=== PATIENT | female | born 1985 | race Caucasian/White ===

== ENCOUNTER 2019-06-05 12:16 | Emergency (ER) | payer MEDICAID, SELFPAY ==
[2019-06-05 12:26] VITALS: BP 126/91; PULSE 107; TEMP 36.7; O2SAT 100
--- NOTE | 2019-06-05 13:03 | ED.GENADUL_ITS ---
Discharge Plan Disposition Patient Disposition: HOME Condition: Improving Discharge Details Chief Complaint: PsychEval Clinical Impression: Anxiety Primary Care Provider: Unknown,Unknown ED Provider: Taurus Alonzo Home Meds and New Rx's Prescriptions: New prochlorperazine maleate [Compazine] 5 mg tablet 5 - 10 mg PO TID PRN (Reason: anxiety) Qty: 20 RF: 0 Continued hydroxyzine HCl 25 mg Tablet 25 mg PO PRN PRNRF: 0 buprenorphine-naloxone [Suboxone] 4-1 mg Film DAILY RF: 0 Discharge Instructions Instructions: Anxiety (ED) Additional Instructions: Upon discharge he should present to the General acute hospital for establishment of healthcare services and insurance coverage. They can also assist with any financial issues. Feel free to return to the emergency department for any new or significant worsening symptoms for anxiety and take your prescribed medications as needed for further episodes of anxiety. When you can establish a primary care provider please follow-up with them for further medication and treatment of your anxiety. Referrals: Primary Care Provider [Outside] - 5 days (For establishment of primary care and prescription medications) Medical Decision Making Patient presenting the emergency department for chief complaint of anxiety and insomnia. Patient states that she is recently out of rehab and has been staying at the [facility]. She reports going through alcohol and drug rehab for the past 28 days and has been at the [facility] situation for the past 2 days. Patient states episodes of mood swings, anxiety, and mild panic. She states that she has had these previously in the past and they are not new to her but given that she has been now sober for 1 month and now on Suboxone that she is doing better with her drug addiction but having difficulty coping with anxiety. Staff noted some irregular behavior today and brought her into the emergency department for evaluation. Patient denies any medical complaints at this time. Patient is not homicidal suicidal or having any hallucinations. Patient denies any relapse in drug abuse and states that she has been completely clean. Physical exam is unremarkable. Plan to check labs for any metabolic or organic source for her increased anxiety otherwise feel patient more likely dealing with underlying mental health issues secondary to drug rehab. At this time patient is only requesting Nicorette gum which I feel is reasonable. Review of labs shows nonspecific leukocytosis mildly low glucose at 56 so patient given orange juice. Urine and UDS along with other drug screen and alcohol is all negative. TSH is noted to be elevated but still pending free T4. I do feel patient is medically clear for psychiatric evaluation. After acute mental health project manager interior design came and assessed patient he agrees that this seems more anxiety related. Patient has no primary care provider and is new to the area so he provided her with some resources and our care management team is also contacted to help establish primary care. Patient's anxiety and given previous drug abuse including prescriptions I do feel safe attempting Compazine for patient's anxiety. Was able to speak with care management team and they informed me that given that patient is already been referred to [facility] for [facility] services they will also contact them to try to establish primary care provider as soon as possible as I do feel that patient should be evaluated for anti-anxiety or mood stabilization. Patient's free T4 was within normal range. Patient to follow-up with primary care provider preferably early next week either through [facility] or on-call PCP. Patient reassessed and does state that Compazine does seem to be slightly calming her with minimal side effects. Patient given prescription for this to continue use as needed. Return precautions discussed. After discussion of diagnosis and plan of care patient has no further needs, questions, or concerns and states clear understand ing to return to the emergency department for any worsening symptoms. HPI General Mode of arrival: ambulatory . Date/Time Provider Initiated Documentation: 06/05/19 12:22 . Limitations to Documentation: no limitations . Information obtained by: patient and RN notes reviewed . History of Present Illness 34 year old F presents to the emergency department with the chief complaint of Anxiety, insomnia, described as similar to prior episodes, Patient started experiencing this month(s) (1) and it has been intermittent. Patient notes no other symptoms.. Patient did receive the following treatments prior to arrival, none Related Data Home Medications Medication Instructions Recorded Confirmed buprenorphine-naloxone [Suboxone] film DAILY 06/05/19 hydroxyzine HCl 25 mg PO PRN PRN 06/05/19 06/05/19 prochlorperazine maleate 5 - 10 mg PO TID PRN #20 tab 06/05/19 [Compazine] Previous Rx's Medication Instructions Recorded prochlorperazine maleate 5 - 10 mg PO TID PRN #20 tab 06/05/19 [Compazine] Allergies Allergy/AdvReac Type Severity Reaction Status Date / Time No Known Allergies Allergy Unverified 06/05/19 12:33 General Stated Complaint: PsychEval DAX: 2 Review of Systems Constitutional Constitutional: Denies chills and Denies fever(s) ENT Ears, Nose, Mouth, and Throat: Reports sinus pressure (Chronic with occasional headaches) Cardiovascular Cardiovascular: Denies chest pain and Denies dyspnea Respiratory Respiratory: Denies dyspnea Gastrointestinal Gastrointestinal: Denies abdominal pain Genitourinary Genitourinary: Denies dysuria Neurologic Neurologic: Denies confusion and Reports paresthesias (Chronic ongoing from heroin use) Psychiatric Psychiatric: Reports as per HPI, Reports abnormal sleep pattern, Reports anxiety, Denies confusion, Denies auditory hallucinations, Reports mood swings, Denies visual hallucinations, Denies hallucinations, Denies tactile hallucinations, Denies homicidal ideation and Denies suicidal ideation [facility] Social History Alcohol Intake: former Details: has been sober for 1 month-was drinking 2 gallons vodka /day. was taking percocet, vicodin, adderal, vyvanse, ritalin. Exam Const General: cooperative Orientation: alert, awake and oriented x3 Limitations: mental status not altered HENIL Head: normal to inspection, normocephalic and atraumatic Ears: hearing grossly normal bilaterally Mouth: moist mucous membranes Eyes General: appearance normal, both eyes and all related structures Pupils: PERRL EOM: EOM intact bilaterally Neck Thyroid: thyroid normal Resp Effort & Inspection: normal respiratory effort, able to speak in complete sentences and no respiratory distress Auscultation: clear to auscultation bilaterally Cardio Rate: regular rate and not tachycardic Rhythm: regular rhythm Heart Sounds: S1 normal, S2 normal, no click, no gallops, no murmurs and no rubs Neuro General: alert, awake, oriented x3, gait normal, moves all extremities, no meningeal signs, no focal motor deficits, CN's II-XI intact bilaterally and not confused Cognition: normal cognition Speech: speech normal Psych Appearance: grossly normal Mental Status: mental status grossly normal Speech and Movement: speech and movement normal and speech clear Mood: anxious mood Affect: anxious affect Attitude: cooperative Thought Process: normal Thought Content: no hallucinations, no homicidality, obsessions (Thoughts of identity theft), no phobias and suicidality Insight: fair Judgment: fair Course Vital Signs Vital signs: Vital Signs Temperature 36.7 C 06/05/19 12:26 Pulse 107 H 06/05/19 12:26 Blood Pressure 126/91 H 06/05/19 12:26 Pulse Oximetry 100 06/05/19 12:26 Temperature 36.7 C 06/05/19 12:26 Temperature Source Skin 06/05/19 12:26 Pulse 107 H 06/05/19 12:26 Respiratory Effort Non-Labored 06/05/19 12:26 Blood Pressure 126/91 H 06/05/19 12:26 Blood Pressure Position Sitting 06/05/19 12:26 Pulse Oximetry 100 06/05/19 12:26 Oxygen Delivery Method Room Air 06/05/19 12:26 Oxygen Flow Rate 0 06/05/19 12:26 Pain Level 0 06/05/19 12:26
--- NOTE | 2019-06-05 13:09 | NUR.NOTE ---
No CPSO needed per nd,crossing watchman Nursing Note:
[2019-06-05 13:14] LABS: Bilirubin Negative (Negative); Blood Negative (Negative); Clarity Clear (Clear); Glucose Negative (Negative); Ketones Negative (Negative); Leukocyte Esterase Negative (Negative); Nitrite Negative (Negative); Specific Gravity 1.015 (1.005-1.025); Urobilinogen 0.2 EU/dL (Up TO 0.2)
[2019-06-05] MEDS: Nicotine 4 MG GUM CH (13:18)
[2019-06-05 13:30] LABS: *AMPHETAMINES SCREEN URINE Negative (Negative); *BARBITURATES SCREEN URINE Negative (Negative); *BENZODIAZEPINES SCREEN URINE Negative (Negative); Cannabinoids THC Negative (Negative); Cocaine Screen,Urine Negative (Negative); METHADONE URINE SCREEN Negative (Negative); OPIATES URINE SCREEN Negative (Negative)
[2019-06-05 13:39] LABS: Tricyclic Antidepressants Negative (Negative)
[2019-06-05 13:40] LABS: Abs Immature Grans 0.03 k/cumm (0.0-0.09); Absolute Basophil Count 0.02 k/cumm (0.0-0.2); Absolute Eosinophil Count 0.13 k/cumm (0.0-0.7); Absolute Lymphocyte Count 3.99 k/cumm (1.2-3.4); Absolute Monocyte Count 0.92 k/cumm (0.11-0.7); Absolute Neutrophil Count 5.78 k/cumm (1.2-6.7); Basophils % 0.2; Eosinophils % 1.2; HCT 39.7 % (36.0-46.0); HGB 13.2 g/dL (12.0-15.5); Immature Grans % 0.3; Lymphocytes % 36.7; Mean Corp. HGB Concentration 33.2 g/dL (32.0-36.0); Mean Corpuscular Hemoglobin 30.6 pg (27.0-33.0); Mean Corpuscular Volume 92.1 fL (80-95); Mean Platelet Volume 9.4 fL (8.0-11.0); Monocytes % 8.5; Neutrophils % 53.1; Platelet Count 263 x1000/uL (130-400); RBC 4.31 m/cumm (4.00-5.20); RBC Distribution Width 12.3 % (11.7-14.6); White Blood Cell Count 10.88 k/cumm (4.4-10.8)
[2019-06-05 14:13] LABS: Acetaminophen < 2 ug/mL (10-30); Salicylate 3.7 mg/dL (2.8-20.0)
[2019-06-05 14:18] LABS: ALT 23 U/L (14-59); AST 19 U/L (15-37); Albumin 4.4 g/dL (3.4-5.0); Alkaline Phosphatase 42 U/L (46-116); Anion Gap 5.8 mmol/L (3-11); BUN 7 mg/dL (7-18); Bilirubin, Total 0.2 mg/dL (0.2-1.0); CO2 30.2 mmol/L (21.0-32.0); Calcium 9.2 mg/dL (8.5-10.1); Chloride 102 mmol/L (98-107); Glucose 56 mg/dL (70-100); Potassium 4.2 mmol/L (3.5-5.1); Sodium 138 mmol/L (136-145); TSH 4.42 uIU/mL (0.36-3.74)
[2019-06-05 14:36] LABS: ETHANOL BLOOD < 3.0 mg/dL (<3)
[2019-06-05] MEDS: Nicotine 2 MG GUM CH (14:39)
[2019-06-05] MEDS: Prochlorperazine 5 MG TAB PO (14:51)
[2019-06-05 15:09] LABS: FREE T4 0.95 ng/dL (0.76-1.46)
--- NOTE | 2019-06-05 15:29 | PDOC.MHCN ---
Date of service: 06/05/19 Time of Service: 14:53 Mental Health Crisis Note Presenting Issue How did you arrive at the ED and why did you come: Patient arrives to [facility] ED with chief complaint of anxiety, instability of behavior and mood, and possible altered mental status. According to a employee representative of [facility], patient was seen acting erratically at the local courthouse while engaging in a verbal altercation with several men whom she claimed looked like/was her estranged . Additionally, employee representative reports that patient had been displaying concerning issues w/r/t orientation around the date / time and memory deficits earlier today. Precipitating Factors Patient is a 34yo female with history of SA that is currently residing at the [facility]. She has received 28 days of programming / treatment at [facility] prior to being admitted to her current residential arrangement. Since leaving [facility] she reports feeling escalating levels of anxiety and generally feeling overwhelmed with life/environmental stressors and advises that once my head gets going with racing thoughts it's hard for me to stop. She exhibits some fixation w/r/t to her estranged and advises that she was convinced about seeing him in the courthouse earlier today and that this experience triggered longstanding anxiety issues. She denies current suicidal ideation, intent or plan. She denies any active substance use. She is alert and oriented and does not report any hallucinations. Association are intact, thinking is logical and coherent, and thought content is appropriate to context. Insight and judgment are fair. PCP / Rx: Patient currently takes suboxone. She currently does not have a PCP and has not been prescribed any other medications w/r/t anxiety/depression. Disposition BEHAVIOR: Intermittently agitated EYE CONTACT: Good MOOD: Anxious AFFECT: Congruent to mood. APPETITE: Disturbance - loss of appetite due to anxiety-related issues SLEEP(trouble falling/staying asleep: Disturbance - loss of sleep due to anxiety-related issues and environmental stressors. Plan Patient will be discharged under own accord pending medical clearance. Intake was completed and the following information was provided: - Printed listing of Counseling services in [facility] - IOP / Addiciton treatment center resource list - [facility] [employer] access map - [facility] emergency services contact information - Vocational Rehabilitation resource / contact information Per ER physician, care management team will be consulted for a discussion on connecting patient to a PCP. Provisional Diagnosis 309.28 Adjustment disorders; (F43.23) With mixed anxiety and depressed mood Signature Clinician's Name/Title: Fredo Valero, [facility] Emergency Services Clinician
[2019-06-05 15:40] VITALS: BP 128/86; PULSE 78; RESP 14; TEMP 36.7; O2SAT 100
== END 2019-06-05 15:38 | disposition home or self-care (01) ==
PROVIDERS: Emergency Provider Nurse Practitioner Family
DX: F41.9 Anxiety disorder, unspecified (principal)
CPT/HCPCS: 36415; 80053; 80307; 81025; 99284; 80320; 80329; 81003; 84439; 84443; 85025